=== PATIENT | female | born 1995 | race Caucasian/White ===

== ENCOUNTER 2024-09-03 22:16 | Emergency (ER) | payer MEDICAID ==
[~2024-09-03] VITALS: Ht 162.6 cm; Wt 85.0 kg
[2024-09-03 22:25] VITALS: BP 138/87; PULSE 71; RESP 18; TEMP 36.2; O2SAT 96
[2024-09-03] MEDS ORDERED: KETOROLAC 30MG/ML VIAL IM ONE (22:45)
[2024-09-03] MEDS ORDERED: NAPR220C61 MT (23:16)
[2024-09-04] MEDS ORDERED: ACETAMINOPHEN 325MG TABLET PO ONE
== END 2024-09-04 00:17 | disposition home or self-care (01) ==
LOC: ER 22:16
DX: S49.91XA Unspecified injury of right shoulder and upper arm, initial encounter (principal); G89.11 Acute pain due to trauma; V43.62XA Car passenger injured in collision with other type car in traffic accident, initial encounter; Y93.89 Activity, other specified; Y92.89 Other specified places as the place of occurrence of the external cause; Y99.8 Other external cause status
CPT/HCPCS: 29125; 73070; 73090; 73100; 99284; A4565